=== PATIENT | male | born 1980 | race Caucasian/White ===

== ENCOUNTER 2020-10-12 19:28 | Emergency (ER) | payer OTHER, SELFPAY ==
--- NOTE | ~2020-10-12 | US_ITS ---
EXAMINATION: US VENOUS ULTRASOUND WITH DOPPLER LOWER EXTREMITY, LEFT CLINICAL INFORMATION: Left lower extremity tenderness and swelling. COMPARISON: None TECHNIQUE: Ultrasound of the deep veins is performed from the hip to the calf with compression sonography and color and pulse Doppler assessment. Spectral analysis with color-flow imaging is performed. FINDINGS: There is normal venous compression and respiratory variation and augmented flow. The visualized common femoral vein, superficial femoral vein, profunda femoral vein, popliteal vein, and the trifurcation region shows no evidence of deep venous thrombosis. There is no significant popliteal fossa cyst. If the patient's symptoms persist, followup ultrasound in 5 days 7 days might be of value to exclude proximal propagation from a non-visualized calf vein. US/US venous duplex LE LT IMPRESSION: No DVT demonstrated in the left lower extremity.
[2020-10-12 21:49] VITALS: BP 166/106; PULSE 81; RESP 16; TEMP 36; O2SAT 98; BMI 40.6
--- NOTE | 2020-10-12 23:57 | ED.SKABFB ---
HPI - Skin/Abscess/Foreign Bdy General Chief complaint: Skin/Abscess/Foreign Body Stated complaint: burn Time Seen by Provider: 10/12/20 23:57 Source: patient Mode of arrival: ambulatory Limitations: no limitations History of Present Illness HPI narrative: Came in for evaluation of her right lower extremities DVT. 40-year-old male sustained first-degree burn on the lateral aspect of left leg patient was seen at an urgent care who sent him to the hospital for getting an ultrasound to rule out blood clots. Patient was started on Keflex and Bactrim double strength by the urgent care. Related Data Allergies Allergy/AdvReac Type Severity Reaction Status Date / Time No Known Allergies Allergy Verified 10/12/20 23:57 Review of Systems Review of Systems: All other systems are reviewed and are negative Constitutional: Reports as per HPI and Reports no additional constitutional complaints Eyes: Reports as per HPI and Reports no additional eye complaints Reports system reviewed and no additional complaints, except as documented Cardiovascular: Reports as per HPI and Reports no additional cardiovascular complaints Respiratory: Reports as per HPI and Reports no additional respiratory complaints Gastrointestinal: Reports as per HPI and Reports no additional gastrointestinal complaints Genitourinary: Reports no additional female genitourinary complaints Musculoskeletal: Reports no additional musculoskeletal complaints Skin/Breast: Reports system reviewed and no additional complaints, except as docu Psychiatric: Reports no additional psychiatric complaints Endocrine: Reports no additional endocrine complaints Hematologic/Lymphatic: Reports no additional hematologic/lymphatic complaints Allergic/Immunologic: Reports no additional allergic/immunologic complaints Reports system reviewed and no additional complaints, except as documented and Reports Abnormal speech present [facility] Social History Social History Advance Directives: No Advance Directives Information Provided: No Physical Exam Vital Signs: Vital Signs: Last Vital Signs Temp 96.8 F 10/12/20 21:49 Pulse 78 10/13/20 00:21 Resp 18 10/13/20 00:21 BP 168/92 H 10/13/20 00:21 Pulse Ox 99 10/13/20 00:21 Body Mass Index 40.6 Vital signs have been reviewed as appeared to be correct. Blood pressure elevated Heart rate normal. Respiration rate normal. Temperature normal. Oxygen saturation normal. Appearance: Alert. Oriented X3. No acute distress. Head: Normal external exam. Normocephalic. Atraumatic. No Jack signs noted. No raccoon eyes noted Eyes: PERRLA. EOMI. Conjunctiva and sclera normal. Eyelids normal. ENT: TM's Normal. Pharynx normal. Uvula midline. Moist mucous membranes. No trismus noted. No drooling noted. No muffled voice noted. Neck: Normal inspection. Neck supple. FROM. No adenopathy. Thyroid Normal. No meningeal signs. No neck mass noted. CVS: Normal heart rate and rhythm. Heart sound normal. No murmurs noted. Pulses normal throughout. Respiratory: No respiratory distress. Painless inspiration. Breath sounds normal. No wheezes/rales/rhonchi noted. Chest nontender. No accessory muscle usage noted or decreased air movement noted. Abdomen: Soft and nontender. Bowel sounds normal in all 4 quadrants. No distention noted. No organomegaly noted. No visible injury noted. Back: No CVA tenderness. Full range of motion noted. Skin: Skin warm and dry. Normal skin color. Normal skin turgor. No rashes/lesions/lacerations noted. Extremities: 3 x 4 cm area of first-degree burn on the lateral aspect of lower left leg surrounded by area of erythema and swelling with tenderness over the left calf. Neuro: Oriented X 3. Cranial nerve exam: II-XII are grossly intact No motor deficit. No sensory deficit. Reflexes normal. Course Course Course Narrative: Assessment and plan. 40-year-old male came in after sustained a first-degree burn on the left lower extremities with swelling and tenderness, patient was seen and evaluated at the urgent care had antibiotic was prescribed to the patient (Keflex and Bactrim) patient was sent to the hospital for rule out DVT. Ultrasound of left lower extremity showed no acute DVT. Patient was instructed to keep his leg elevated/cool compression/NSAIDs/take antibiotic as prescribed/follow-up with PCP. MDM - Skin/Abscess/Foreign Bdy Imaging Data Left lower extremities ultrasound: Radiologist's impression: No DVT demonstrated in the left lower extremity. Discharge Plan Discharge Clinical Impression: Cellulitis Qualifiers: Site of cellulitis of extremity: lower extremity Laterality: left Patient Disposition: Home, Self-Care Instructions: Cellulitis (ED) Referrals: Physician,None [Primary Care Provider] - 2 days
[2020-10-13 00:21] VITALS: BP 168/92; PULSE 78; RESP 18; O2SAT 99
== END 2020-10-13 01:50 | disposition home or self-care (01) ==
PROVIDERS: Emergency Provider Emergency Medicine
DX: L03.116 Cellulitis of left lower limb (principal); M79.662 Pain in left lower leg; R22.42 Localized swelling, mass and lump, left lower limb
CPT/HCPCS: 93971; 99284

== ENCOUNTER 2025-01-16 09:34 | Emergency (ER) | payer OTHER, SELFPAY ==
--- NOTE | 2025-01-16 09:35 | ECG_ITS ---
Test Reason : EHR Blood Pressure : */* mmHG Vent. Rate : 154 BPM Atrial Rate : 308 BPM P-R Int : * ms QRS Dur : 70 ms QT Int : 312 ms P-R-T Axes : 262 23 -30 degrees QTcB Int : 499 ms Atrial flutter with 2:1 A-V conduction ST & T wave abnormality, consider anterolateral ischemia Abnormal ECG No previous ECGs available Referred By: Generic ED Physician Electronically Signed By: Roderick Mcclelland
--- NOTE | 2025-01-16 10:10 | PC.NURSE ---
Pt has been called from [facility] times w/o response. Voice mail left on cell phone. all bathrooms empty. Registration saw patient leave and signal to someone to pull a car up to ER doors.
== END 2025-01-16 10:28 | disposition left against medical advice (07) ==
PROVIDERS: Emergency Provider Emergency Medicine; PCP Family Medicine
DX: R00.0 Tachycardia, unspecified (principal)
CPT/HCPCS: 93005; 99281; 99282

== ENCOUNTER → 2025-01-16 09:35 | Outpatient (BNV) | payer OTHER, SELFPAY | PROVIDERS: Emergency Provider Emergency Medicine; PCP Family Medicine; Visit Provider Internal Medicine Cardiovascular Disease | DX: I48.92 Unspecified atrial flutter (principal); I44.1 Atrioventricular block, second degree; R00.2 Palpitations | CPT/HCPCS: 93010 ==

== ENCOUNTER 2025-01-16 12:44 | Emergency (ER) | payer OTHER, SELFPAY ==
--- NOTE | ~2025-01-16 | XR_ITS ---
CLINICAL HISTORY: palpitations 2 view chest x-ray Comparison: None provided Findings: No consolidation or effusion. Elevation of the right hemidiaphragm. There is enlargement of the cardiopericardial silhouette. No acute fracture. IMPRESSION: 1. No acute findings. Cardiomegaly. This document has been electronically signed by: Obinna Rose MD on 01/16/2025 14:18:31
[2025-01-16 12:45] VITALS: BP 125/74; PULSE 158; RESP 16; TEMP 36.4; O2SAT 97; BMI 39.6
--- NOTE | 2025-01-16 12:47 | ED.GENADULT ---
HPI - General Adult General Chief complaint: Arrhythmia/Palpitations Stated complaint: elevated hr, seen earlier but left Time Seen by Provider: 01/16/25 13:00 Source: patient Mode of arrival: ambulatory Limitations: no limitations History of Present Illness ED Provider: Mehreen Shannon APRN HPI narrative: 44-year-old male with a history of AFib currently on metoprolol woke this morning at 06:00 with palpitations. Came to the emergency room this morning around 09:00 and after waiting for 10 minutes he decided she will go home. Patient returns for continued complaints of palpitations. He denies any chest pain, shortness of breath, diaphoresis or vomiting. No leg swelling or leg pain. No recent travel. No recent illnesses. Patient is followed by [facility]. He has not had an episode of AFib for more than 1 year. He does drink 6-7 cups of coffee a day. Related Data Allergies Allergy/AdvReac Type Severity Reaction Status Date / Time No Known Allergies Allergy Verified 01/16/25 12:46 [facility] Social History Social History Smoked in Last 30 Days: No Use of substances other than those prescribed or required for medical reasons: No Advance Directives: No Advance Directives Information Provided: Yes Physical Exam ED Vital Signs: Vital Signs - 24 hr 01/16/25 12:45 01/16/25 14:13 Temperature 97.5 F 0 F L Pulse Rate 158 H 72 Respiratory Rate 16 18 Blood Pressure 125/74 108/76 Pulse Oximetry 97 98 Oxygen Delivery Method Room Air Room Air BMI result Body Mass Index 39.6 Course Course Course Narrative: Rapid medical examination performed in triage by Alma Delia Robledo PA-C: Patient is a 44 year old assigned male at presenting to the emergency department with palpitations. Detailed physical exam and review of systems are deferred to the medical van driver. EKG, labs, imaging ordered. Patient placed in room 24. Reevaluation(s) Reevaluation #1: Medical Decision Making Medical Decision Making [facility] Narrative: 44-year-old male with a history of AFib currently on metoprolol woke this morning at 06:00 with palpitations. Came to the emergency room this morning around 09:00 and after waiting for 10 minutes he decided she will go home. Patient returns for continued complaints of palpitations. He denies any chest pain, shortness of breath, diaphoresis or vomiting. No leg swelling or leg pain. No recent travel. No recent illnesses. Patient is followed by [facility]. He has not had an episode of AFib for more than 1 year. He does drink 6-7 cups of coffee a day. when I walked into the room the patient's heart rate was 177 and his pulse was irregularly irregular. He appears that he is in a flutter. After approximately 1-2 minutes he self converted to normal sinus rhythm with a rate of 70-80. All symptoms resolved will obtain labs, chest x-ray and monitor for brief time. If stable can discharge home with cardiology follow-up Differential Diagnosis Differential Diagnoses: The differential diagnosis associated with the presentation includes arrhythmia, ACS Admission/Observation Consideration of admission/observation: Escalation of care including admission/observation considered patient converted to sinus rhythm without any intervention and was often our emergency room with no change. Can follow up outpatient with his lead athlete 01/16/25 Provider: Sivakumar Ross MD I did discuss the patient's presentation and workup with the Nurse Practitioner Mehreen Shannon. The patient's CHA2 DS2-VASc Score is 0 points, which puts his stroke/TIA risk at 0.2 to 0.3% per year therefore anticoagulation is not recommended in this patient based on the score. Of note, when the patient 1st presented to the emergency department, I was showed his EKG within 10 minutes of the EKG being done. The EKG showed atrial flutter with a rate of approximately 150 bpm with no significant ST segment elevation or depression. I walked out to triage in order to ask the triage nurse to bring the patient back to emergency department for further evaluation. The nursing staff was unable to locate the patient and as stated in the above HPI, the patient only waited 10 minutes before he left the emergency department without informing any staff member. I, Dr. Sivakumar Ross, was available for consultation by CHICKEN CLEANER Mehreen Shannon while the patient was in the emergency department. I reviewed her findings, I was available to supervise the management of the patient, and I agree with the treatment and plan. Further, I agree with all order as written. Lab Data MDM Lab Attestation statement: I reviewed the patient's lab results. 01/16/25 13:08 01/16/25 13:08 Labs: Lab Results 01/16/25 Range/Units 13:08 WBC 5.8 (4.8-10.8) X10*3/uL RBC 5.06 (4.60-5.80) X10*6/uL Hgb 14.7 (14.0-18.0) g/dl Hct 43.3 (42.0-52.0) % MCV 85.6 (80.0-98.0) fL MCH 29.1 (27.0-33.0) pg MCHC 33.9 (31.0-36.0) g/dl RDW 12.7 (11.0-16.0) % Plt Count 180 (160-400) X10*3/uL MPV 12.8 H (9.4-12.4) fL Immature Gran % (Auto) 0.3 (0.0-0.4) % Neut % (Auto) 62.7 (45-73) % Lymph % (Auto) 27.4 (20-40) % Douglas % (Auto) 8.4 (2-11) % Eos % (Auto) 0.9 (0-4) % Baso % (Auto) 0.3 (0-2) % Lymph # (Auto) 1.6 (1.2-4.9) X10*3/uL Douglas # (Auto) 0.5 (0.1-1.2) X10*3/uL Eos # (Auto) 0.1 (0.0-0.4) X10*3/uL Baso # (Auto) 0.0 (0.0-0.2) X10*3/uL Abs Immat Gran (auto) 0.02 (0.00-0.03) X10*3/uL Absolute Neuts (auto) 3.6 (2.0-8.3) x10*3/uL Absolute Nucleated RBC 0.000 (0.0-0.012) X10*3/uL Nucleated RBC % (auto) 0.0 (0.0-0.2) /100WBC PT 13.1 (11.2-13.5) SEC INR 1.1 (0.9-1.1) Sodium 142 (135-145) mmol/L Potassium 4.1 (3.3-5.1) mmol/L Chloride 107 (96-108) mmol/L Carbon Dioxide 25 (22-29) mmol/L Anion Gap 14 (12-20) BUN 16 (9-16) mg/dL Creatinine 1.06 (0.5-1.4) mg/dL Estim Creat Clear Calc 125.1 Estimated GFR > 60 Random Glucose 97 (60-115) mg/dL Calcium 9.4 (8.4-10.2) mg/dL Magnesium 2.0 (1.6-2.6) mg/dL Total Bilirubin 0.8 (0.0-1.0) mg/dL AST 29 (5-37) U/L ALT 46 H (0-40) U/L Alkaline Phosphatase 54 (39-117) U/L Troponin I High Sens < 2.7 (<3.5-35.0) ng/L Total Protein 6.9 (6.5-8.0) g/dL Albumin 4.7 (3.5-5.0) g/dL Independent Interpretation I performed an independent interpretation of an: EKG, Rhythm Strip and Plain X-Ray Interpretation: I independently viewed the EKG which shows normal sinus rhythm I independently reviewed his rhythm strip which showed atrial flutter with a rate of 177 I independently viewed the chest x-ray and agree with the radiology report Radiology Impression Discussion of test interpretation with radiology: I have reviewed the radiologist's reading. Radiologist Impression: [place] [id number] XRay Report Signed Patient: Rafal Spangler MR#: [id number] : 1980 Acct:[id number] Age/Sex: 44 / M ADM Date: 01/16/25 Loc: .ED Attending Dr: Ordering Physician: Alma Delia Robledo Date of Service: 01/16/25 Procedure(s): XR chest 2V Accession Number(s): [id number] cc: Alma Delia Robledo; Chon Justice MD~ Reason for Exam: palpitations CLINICAL HISTORY: palpitations 2 view chest x-ray Comparison: None provided Findings: No consolidation or effusion. Elevation of the right hemidiaphragm. There is enlargement of the cardiopericardial silhouette. No acute fracture. IMPRESSION: 1. No acute findings. Cardiomegaly. This document has been electronically signed by: Obinna Rose MD on 01/16/2025 14:18:31 Discharge Plan Discharge Clinical Impression: Atrial fibrillation Patient Disposition: Home, Self-Care Instructions: A-fib (Atrial Fibrillation) (ED) Additional Instructions: you were in AFib on arrival. You went into a normal sinus rhythm without any intervention follow-up with your outpatient lead athlete limit caffeine intake stay well hydrated return for any additional concerns Referrals: Chon Justice MD [Primary Care Provider, Internal Medicine] Interventions: ED Discharge Assessment Last Done: 01/16/25 14:13 Discharge Date/Time: 01/16/25 14:14 Print Language: Honduran
--- NOTE | 2025-01-16 12:48 | ECG_ITS ---
Test Reason : PALPATION Blood Pressure : */* mmHG Vent. Rate : 83 BPM Atrial Rate : 83 BPM P-R Int : 134 ms QRS Dur : 88 ms QT Int : 360 ms P-R-T Axes : 45 27 12 degrees QTcB Int : 423 ms Normal sinus rhythm Normal ECG When compared with ECG of 16-Jan-2025 09:42, Sinus rhythm has replaced Atrial flutter Vent. rate has decreased by 71 bpm Non-specific change in ST segment in Inferior leads ST no longer depressed in Anterior leads T wave inversion less evident in Inferior leads T wave inversion no longer evident in Lateral leads Referred By: Alma Delia Robledo Electronically Signed By: Roderick Mcclelland
[2025-01-16 13:29] LABS: MANUAL DIFF FLAG NO
[2025-01-16 13:32] LABS: Hematocrit 43.3 % (42.0-52.0); Hemoglobin 14.7 g/dl (14.0-18.0); Imm Gran Abs Auto 0.02 X10*3/uL (0.00-0.03); Imm Gran Pct Auto 0.3 % (0.0-0.4); Lymphocytes Absolute Auto 1.6 X10*3/uL (1.2-4.9); Mean Corpuscular HGB Conc 33.9 g/dl (31.0-36.0); Mean Corpuscular Hemoglobin 29.1 pg (27.0-33.0); Mean Corpuscular Volume 85.6 fL (80.0-98.0); NRBC Abs Auto 0.000 X10*3/uL (0.0-0.012); NRBC Pct Auto 0.0 /100WBC (0.0-0.2); Platelet Count 180 X10*3/uL (160-400); Red Blood Count 5.06 X10*6/uL (4.60-5.80); White Blood Count 5.8 X10*3/uL (4.8-10.8)
[2025-01-16 13:37] LABS: INTERNATIONAL NORM RATIO 1.1 (0.9-1.1); Prothrombin Time 13.1 SEC (11.2-13.5)
[2025-01-16 13:49] LABS: Alanine Aminotransferase 46 U/L (0-40); Albumin Level 4.7 g/dL (3.5-5.0); Alkaline Phosphatase 54 U/L (39-117); Anion Gap 14 (12-20); Aspartate Amino Transferase 29 U/L (5-37); Blood Urea Nitrogen 16 mg/dL (9-16); Calcium 9.4 mg/dL (8.4-10.2); Carbon Dioxide 25 mmol/L (22-29); Chloride 107 mmol/L (96-108); Creatinine Clr Calc Pharmacy 125.1; Estimated Glomerular Filt Rate > 60; Magnesium 2.0 mg/dL (1.6-2.6); Potassium 4.1 mmol/L (3.3-5.1); Sodium 142 mmol/L (135-145); Total Protein 6.9 g/dL (6.5-8.0)
[2025-01-16 13:58] LABS: Troponin-I High Sensitivity < 2.7 ng/L (<3.5-35.0)
[2025-01-16 14:13] VITALS: BP 108/76; PULSE 72; RESP 18; TEMP -17.7; TEMP 0; O2SAT 98
== END 2025-01-16 14:14 | disposition home or self-care (01) ==
PROVIDERS: Physician Assistant Medical; Emergency Provider Emergency Medicine Emergency Medical Services; PCP Family Medicine
DX: I48.91 Unspecified atrial fibrillation (principal); I49.9 Cardiac arrhythmia, unspecified; R00.2 Palpitations; Z79.899 Other long term (current) drug therapy
CPT/HCPCS: 36415; 71046; 80053; 83735; 84484; 85025; 85610; 93005; 99283; 99284

== ENCOUNTER → 2025-01-16 12:48 | Outpatient (BNV) | payer OTHER, SELFPAY | PROVIDERS: Emergency Provider Emergency Medicine Emergency Medical Services; PCP Family Medicine; Visit Provider Nuclear Medicine | DX: R00.2 Palpitations (principal) | CPT/HCPCS: 71046 ==